=== PATIENT | female | born 1940 | race Caucasian/White ===

== ENCOUNTER 2017-01-24 07:03 | Day surgery (SDC) | payer MEDICARE ==
[~2017-01-24 07:03] MED LIST: Acetaminophen TAB* 325 MG PO PRN; Buffered Lidocaine 1% SYR 3ML* 3 ML/SYR SYRINGE INTRADERM ONE
[2017-01-24] MEDS ORDERED: Midazolam* 1 MG/ML 2 ML VIAL (2 MG) ONE (08:49)
[2017-01-24] MEDS ORDERED: Lidocaine 2% EPI 1:200000 MPF* 20 ML VIAL ONE (09:21)
[2017-01-24] MEDS ORDERED: Cyclopentolate 1% OPTH.SOL* 2 ML BTL ONE (09:21)
[2017-01-24] MEDS ORDERED: Phenylephrine 2.5% OPTH.SOL* 2 ML BTL ONE (09:21)
[2017-01-24] MEDS ORDERED: Lidocaine 1% MPF* 2 ML VIAL ONE (09:21)
[2017-01-24] MEDS ORDERED: Povidone Iodine 5% OPTH* 30 ML BTL ONE (09:21)
[2017-01-24] MEDS ORDERED: Proparacaine 0.5% OPHTH.SOL* 15 ML BTL ONE (09:21)
[2017-01-24] MEDS ORDERED: Neomycin/Polymy/Dex OPTH.SUSP* MAXITROL 0.1% 5 ML ONE (09:21)
[2017-01-24] MEDS ORDERED: Flurbiprofen 0.03% OPTH.SOL* 2.5 ML BTL ONE (09:21)
[2017-01-24] MEDS ORDERED: acetaZOLAMIDE TAB* 250 MG ONE (09:21)
[2017-01-24 09:35] VITALS: BP 130/56
--- NOTE | 2017-01-25 02:15 | OP ---
DATE OF OPERATION: 01/24/17 - [facility] DATE OF : 42 SURGEON: Mario Bowman M.D. PREOPERATIVE DIAGNOSIS: Cataract, left eye. POSTOPERATIVE DIAGNOSIS: Cataract, left eye. OPERATIVE PROCEDURE: Phacoemulsification, left eye, with IOL. DESCRIPTION OF PROCEDURE: The patient was brought to the operating room after being given 1/2% Alcaine with epinephrine drops in the preoperative area. The eye was prepped and draped in the usual sterile fashion. Sterile drape and eyelid speculum were placed. Again, topical 1/2% Alcaine with epinephrine was given. A paracentesis incision was made at the 3 o'clock position with the No.75 blade. Clear cornea incision 2.2 x 2.2-mm was created at the 6 o'clock position starting at the anterior limbus using the 2.2-mm keratome. The anterior chamber was irrigated with 0.4 mL of 1% non-preservative intracameral lidocaine and filled with DisCoVisc. A capsulorrhexis was completed using the cystotome and the Utrata forceps. Hydrodissection was performed with balanced salt solution. The lens nucleus was removed with the Phacoemulsification handpiece without incident. Cortex was removed with the irrigation-aspiration handpiece. The capsular bag was re-inflated using DisCoVisc and an [id number] 17.5 implant was inserted with the shooter. The irrigation-aspiration handpiece was used to remove all residual DisCoVisc. The eye was refilled with balanced salt solution and the wound checked and found to be watertight. Topical Maxitrol drops were given. [id number]/[facility] #: [id number] MTDD
== END 2017-01-24 09:49 | disposition home or self-care (01) ==
LOC: OREAST 07:03
PROVIDERS: ATTEND Specialist
DX: H25.812 Combined forms of age-related cataract, left eye (principal); H43.813 Vitreous degeneration, bilateral; H16.223 Keratoconjunctivitis sicca, not specified as Sjogren's, bilateral; Z85.3 Personal history of malignant neoplasm of breast
CPT/HCPCS: A9270-GY; J2250; V2632

== ENCOUNTER 2017-01-31 08:05 | Day surgery (SDC) | payer MEDICARE ==
[~2017-01-31 08:05] MED LIST changes: +Cyclopentolate 1% OPTH.SOL* 2 ML BTL ONE; +Flurbiprofen 0.03% OPTH.SOL* 2.5 ML BTL ONE; +Lidocaine 1% MPF* 2 ML VIAL ONE; +Lidocaine 2% EPI 1:200000 MPF* 20 ML VIAL ONE; +Neomycin/Polymy/Dex OPTH.SUSP* MAXITROL 0.1% 5 ML ONE; +Phenylephrine 2.5% OPTH.SOL* 2 ML BTL ONE; +Povidone Iodine 5% OPTH* 30 ML BTL ONE; +Proparacaine 0.5% OPHTH.SOL* 15 ML BTL ONE; +acetaZOLAMIDE TAB* 250 MG ONE
[2017-01-31] MEDS ORDERED: Midazolam* 1 MG/ML 2 ML VIAL (2 MG) ONE (10:19)
[2017-01-31 11:12] VITALS: BP 142/75
--- NOTE | 2017-01-31 12:41 | OP ---
DATE OF OPERATION: 01/31/2017. DATE OF : 1940. SURGEON: Mario Bowman M.D. PREOPERATIVE DIAGNOSIS: Cataract right eye. POSTOPERATIVE DIAGNOSIS: Cataract right eye. OPERATIVE PROCEDURE: Phacoemulsification right eye with IOL. PROCEDURE: The patient was brought to the operating room after being given 1/2% Alcaine with epinep hrine drops in the preoperative area. The eye was prepped and draped in the usual sterile fashion. Sterile drape and eyelid speculum were placed. Again, topical 1/2% Alcaine with epinephrine was gi wilbert. A paracentesis incision was made at the 9 o'clock position with the No.75 blade. Clear cornea incision 2.2 x 2.2-mm was created at the 12 o'clock position starting at the anterior limbus using the 2.2-mm keratome. The anterior chamber was irrigated with 0.4 mL of 1% non-preservative intracam eral lidocaine and filled with DisCoVisc. A capsulorrhexis was completed using the cystotome and nando e Utrata forceps. Hydrodissection was performed with balanced salt solution. The lens nucleus was r emoved with the Phacoemulsification handpiece without incident. Cortex was removed with the irrigat ion-aspiration handpiece. The capsular bag was re-inflated using DisCoVisc and an [id number] 17 implant was inserted with the shooter. The irrigation-aspiration handpiece was used to remove all residual DisCoVisc. The eye was refilled with balanced salt solution and the wound checked and found to be watertight. Topical Maxitrol drops were given. [id number]/[facility] #: [id number]
== END 2017-01-31 11:26 | disposition home or self-care (01) ==
LOC: OREAST 08:05
PROVIDERS: ATTEND Specialist
DX: H25.811 Combined forms of age-related cataract, right eye (principal); Z85.3 Personal history of malignant neoplasm of breast
CPT/HCPCS: A9270-GY; J2250; V2632

== ENCOUNTER 2017-06-16 12:01 | Emergency (ER) | payer MEDICARE ==
[2017-06-16 12:18] VITALS: BP 140/74
--- NOTE | 2017-06-16 13:49 | RAD ---
INDICATION: Left scapular injury. TECHNIQUE: 3 views of the left scapula were obtained. FINDINGS: The clavicle, scapula and proximal humerus appear intact. There are slightly displaced fractures of the left posterior third fourth and fifth ribs. The results of this exam were called to the referring clinician. IMPRESSION: SLIGHTLY DISPLACED FRACTURES OF THE LEFT THIRD, FOURTH AND FIFTH POSTERIOR RIBS.
--- NOTE | 2017-06-16 13:55 | UC ---
Florina Quan Edward, scribed for Bridget Muse MD on 06/16/17 at 1221 . Upper Extremity HPI - HPI Summary HPI Summary: 76 y/o female presents to [facility] c/o L shoulder pain s/p fall on 06/11/17. Patient lost her balance and fell backwards over and into the bathtub - the patient's L shoulder hit the ledge over the bathtub. The pain came upon immediately following the fall but improved throughout the week. Today at 10:00, however, the patient was performing PT exercises involving the shoulders and arms that aggravated the pain severely - the pain was rated 7/10 at triage. The pain radiates to the side, the back and to the front - she feels like her muscles are spasming. There is also decreased ROM in L arm due to pain in shoulder. The pain is not aggravated by deep breaths. Associated sx: ecchymosis over L shoulder. Denies neck pain, BURTON. The patient has been using Tramadol and Dilaudid for chronic arthritis. PMHx chronic arthritis, nerve pain (resolved), back spasms and breast CA. No PMHx DM, HTN. FHx mother - cancer, aneurysms. Dexascan 01/2017 shows osteopenia, T score in the -1.5 area. - History of Current Complaint Stated Complaint: L. SHOULDER PAIN Hx Obtained From: Patient Onset/Duration: Sudden Onset, Lasting Days, Still Present Pain Intensity: 7 Pain Scale Used: 0-10 Numeric Location Of Pain: Is Discrete @ - L shoulder Associated Signs And Symptoms: Positive: Bruising - L shoulder - Allergies/Home Medications Allergies/Adverse Reactions: Allergies Allergy/AdvReac Type Severity Reaction Status Date / Time No Known Allergies Allergy Verified 06/16/17 12:10 PMH/Surg Hx/FS Hx/Imm Hx - Additional Past Medical History Additional PMH: Positive: arthritis, osteopenia Previously Healthy: No Cancer History: Breast Cancer Other History Of: Negative For: Anticoagulant Therapy - Surgical History Surgical History: Yes Surgery Procedure, Year, and Place: lumpectomy. knee replacement. carpal tunnel surgery. eye surgery - Family History Known Family History: Positive: Other - Parotid CA. Aneurysms - Social History Occupation: Retired Lives: With Family Alcohol Use: Occasionally Alcohol Amount: socially Substance Use Type: None Smoking Status (MU): Former Smoker Type: Cigarettes Amount Used/How Often: 1PPD 25 YRS Length of Time of Smoking/Using Tobacco: 25 YRS Have You Smoked in the Last Year: No When Did the Patient Quit Smoking/Using Tobacco: 1980s Review of Systems Constitutional: Negative Skin: Bruising - Over L shoulder Eyes: Negative ENT: Negative Respiratory: Negative Cardiovascular: Other - no history of hypertension. Gastrointestinal: Negative Genitourinary: Negative Motor: Negative Neurovascular: Negative Musculoskeletal: Arthralgia - L shoulder pain radiating to the back, down the side and to the front, Decreased ROM - L arm due to pain, Other: - no neck pain Neurological: Negative - No BURTON Psychological: Negative All Other Systems Reviewed And Are Negative: Yes Physical Exam Triage Information Reviewed: Yes Appearance: Ill-Appearing - looks chronically unwell, Pain Distress - moderate, looks fatigued. Vital Signs: Initial Vital Signs Temp 97.7 F 06/16/17 12:12 Pulse 75 06/16/17 12:12 Resp 16 06/16/17 12:12 BP 140/74 06/16/17 12:12 Pulse Ox 97 06/16/17 12:12 Vital Signs Reviewed: Yes Eye Exam: Normal ENT: Positive: Pharynx normal Respiratory Exam: Other - kyphotic chest wall withhout Respiratory: Positive: Lungs clear - good air entry to both bases., Normal breath sounds Cardiovascular: Positive: RRR, No Murmur Abdomen Description: Positive: Nontender, Soft Musculoskeletal: Positive: ROM Limited @ - left shoulder. Pain with abduction., Other: - tenderness left scapula with 7 cm ecchymosis over the scapula. No tenderness thoracic vertebra. No clavicular tenderness. Tender along lateral rib cage Neurological: Positive: Alert, Muscle Tone Normal Psychological Exam: Normal Skin Exam: Normal Diagnostics - Laboratory Diagnostic Studies Completed/Ordered: xrays show fractures of ribs 3,4,5 - Radiology Scapula XRAY Xray Interpretation: No Acute Changes - Negative, pending radiology interpretation Radiology Interpretation Completed By: ED Physician Ribs XRAY Xray Interpretation: No Acute Changes - Negative pending radiology interpretation Radiology Interpretation Completed By: ED Physician Upper Extremity Course/Dx - Course Course Of Treatment: reguar use of nabumetone and tramadol - Differential Dx/Diagnosis Provider Diagnoses: left rib fractures 3, 4. 5 Discharge - Discharge Plan Condition: Stable Disposition: HOME Patient Education Materials: Rib Fracture (ED) Additional Instructions: For pain control of rib fractures, I suggest using nabumetone twice daily on a regular basis. Continue use of prevacid, and stop this if you begin having upset stomach. Use tramadol every 6 hours as needed for pain. As discussed, you have an adequate supply. Should you develop shortness of breath, please follow up. I suggest a follow up with Dr. Ferrera within the next week. The documentation as recorded by the Florina grant Edward accurately reflects the service I personally performed and the decisions made by me, Bridget Muse MD.
--- NOTE | 2017-06-16 14:04 | RAD ---
INDICATION: Left rib injury. TECHNIQUE: 4 views of the left ribs and dual-energy PA views of the chest were obtained. FINDINGS: There are slightly displaced fractures of the left posterior third, fourth and fifth ribs. The heart is within normal limits in size. The lungs are clear. There is no evidence for pneumothorax or pleural effusion. IMPRESSION: SLIGHTLY DISPLACED FRACTURES OF THE LEFT THIRD THROUGH FIFTH RIBS, NO EVIDENCE FOR PNEUMOTHORAX.
== END 2017-06-16 14:16 | disposition home or self-care (01) ==
LOC: UCEAST 12:01
DX: Z87.891 Personal history of nicotine dependence (principal); S22.42XA Multiple fractures of ribs, left side, initial encounter for closed fracture; W01.0XXA Fall on same level from slipping, tripping and stumbling without subsequent striking against object, initial encounter; Y93.9 Activity, unspecified; Y92.002 Bathroom of unspecified non-institutional (private) residence as the place of occurrence of the external cause; Y99.9 Unspecified external cause status
CPT/HCPCS: 99212; G0463

== ENCOUNTER 2022-06-08 11:56 | Observation (INO) ==
[2022-06-08 12:50] LABS: ABS Basophils 0.1 10^3/ul (0-0.2); ABS Eosinophils 0.4 10^3/ul (0-0.6); ABS Lymphocytes 1.9 10^3/ul (1.0-4.8); ABS Monocytes 0.4 10^3/ul (0-0.8); ABS Neutrophils 4.3 10^3/ul (1.5-7.7); Eosinophil % 5.5 %; Hematocrit 37 % (35-47); Hemoglobin 12.5 g/dL (12.0-16.0); Lymphocyte % 26.9 %; Mean Corpuscular HGB Conc 34 g/dL (31-36); Mean Corpuscular Hemoglobin 31 pg (27-31); Mean Corpuscular Volume 93 fL (80-97); Mean Platelet Volume 9.9 fL (7.4-10.4); Nucleated Red Blood Cells % 0.1; Platelet Count 161 10^3/uL (150-450); Red Blood Count 4.02 10^6 /uL (3.70-4.87); Red Cell Distribution Width 13 % (10-15)
[2022-06-08 13:02] LABS: Activated Partial Thrombo Time 34.8 seconds (26.0-38.0); INR 1.24 (0.86-1.15)
[2022-06-08 13:23] LABS: ALT 10 U/L (7-52); AST 12 U/L (13-39); Albumin 3.6 g/dL (3.2-5.2); Albumin/Globulin Ratio 1.3 (1-3); Alcohol, S < 13 mg/dL (<13); Alkaline Phosphatase 78 U/L (35-149); Anion Gap 7 mmol/L (2-11); Blood Urea Nitrogen 22 mg/dL (6-24); CO2 Carbon Dioxide 31 mmol/L (22-32); Calcium 9.2 mg/dL (8.6-10.3); Chloride 103 mmol/L (101-111); Cholesterol 179 mg/dL; Globulin 2.8 g/dL (2-4); Glucose 91 mg/dL (70-100); HDL Cholesterol 40.4 mg/dL; LDL Cholesterol 120 mg/dL; Potassium 4.3 mmol/L (3.5-5.0); Sodium 141 mmol/L (135-145); Total Protein 6.4 g/dL (6.4-8.9); Triglycerides 95 mg/dL; eGFR CKD-EPI 53.1 (>60)
[2022-06-08 13:38] LABS: TSH Ultra Thyroid Stim Horm 1.74 mcIU/mL (0.34-5.60)
[2022-06-08] MEDS ORDERED: Ondansetron 4 mg VIAL 2 MG/ML 2 ml VIAL IV PRN (15:21)
[2022-06-08] MEDS ORDERED: NYSTATIN TOPICAL PRN (15:23)
[2022-06-08] MEDS ORDERED: TRIAMCINOLONE TOPICAL PRN (15:23)
[2022-06-08] MEDS ORDERED: Lidocaine PATCH 5% PATCH TRANSDERM PRN (16:45)
[2022-06-08] MEDS: Enoxaparin 40 MG/0.4 ML SYR SUBCUT SCH (19:35)
[2022-06-09 05:54] LABS: ABS Basophils 0.1 10^3/ul (0-0.2); ABS Eosinophils 0.3 10^3/ul (0-0.6); ABS Lymphocytes 1.6 10^3/ul (1.0-4.8); ABS Monocytes 0.3 10^3/ul (0-0.8); ABS Neutrophils 3.6 10^3/ul (1.5-7.7); Hematocrit 37 % (35-47); Hemoglobin 12.9 g/dL (12.0-16.0); Mean Corpuscular HGB Conc 34 g/dL (31-36); Mean Corpuscular Hemoglobin 32 pg (27-31); Mean Corpuscular Volume 92 fL (80-97); Mean Platelet Volume 9.8 fL (7.4-10.4); Nucleated Red Blood Cells % 0.1; Platelet Count 168 10^3/uL (150-450); Red Blood Count 4.06 10^6 /uL (3.70-4.87); Red Cell Distribution Width 13 % (10-15); White Blood Count 5.9 10^3/uL (3.5-10.8)
[2022-06-09 06:44] LABS: Calcium 9.2 mg/dL (8.6-10.3); Potassium 4.3 mmol/L (3.5-5.0); eGFR CKD-EPI 70.2 (>60)
[2022-06-09] MEDS: Venlafaxine XR 75 mg PO SCH (10:05)
[2022-06-09 14:42] LABS: Folate 19.71 ng/mL (5.90-24.80)
[2022-06-09] MEDS: Enoxaparin 40 MG/0.4 ML SYR SUBCUT SCH (16:36)
[2022-06-09] MEDS: Cyanocobalamin INJ 1,000 MCG/ML VIAL 1 ML VIAL IM SCH (16:37)
[2022-06-10] MEDS: Cyanocobalamin INJ 1,000 MCG/ML VIAL 1 ML VIAL IM SCH (08:42)
[2022-06-10] MEDS: Venlafaxine XR 75 mg PO SCH (08:42)
[2022-06-10] MEDS: Enoxaparin 40 MG/0.4 ML SYR SUBCUT SCH (15:59)
[2022-06-11] MEDS: Cyanocobalamin INJ 1,000 MCG/ML VIAL 1 ML VIAL IM SCH (08:12)
[2022-06-11] MEDS: Venlafaxine XR 75 mg PO SCH (08:12)
[2022-06-11] MEDS: Enoxaparin 40 MG/0.4 ML SYR SUBCUT SCH (15:36)
[2022-06-12] MEDS: Venlafaxine XR 75 mg PO SCH (09:18)
[2022-06-12] MEDS: Cyanocobalamin INJ 1,000 MCG/ML VIAL 1 ML VIAL IM SCH (09:18)
[2022-06-12 13:03] VITALS: BP 99/65
[2022-06-13 00:33] LABS: Albumin 3.2 g/dL (3.4-4.7); Albumin/Globulin Ratio 0.98; Total Protein(PEP) 6.5 g/dL (6.3 - 7.9)
[2022-06-14 06:17] LABS: Flag, M-protein Isotype Positive (Negative)
== END 2022-06-12 15:10 | disposition home or self-care (01) ==
LOC: ED 11:56 → EDHOLD 11:56 → MEDTELE 17:40
PROVIDERS: ADMIT Internal Medicine; ATTEND Internal Medicine

== ENCOUNTER 2023-07-11 14:14 | Observation (INO) ==
[2023-07-11] MEDS ORDERED: Magnesium Hydroxide LIQ 30 ML UDC PO PRN (14:19)
[2023-07-11] MEDS ORDERED: Morphine 2 MG/ML SYRINGE IV PRN (14:19)
[2023-07-11] MEDS ORDERED: Ondansetron ODT 4 mg TAB 4 MG TAB PO PRN (14:19)
[2023-07-11] MEDS ORDERED: Ondansetron 4 mg VIAL 2 MG/ML 2 ml VIAL IV PRN (14:19)
[2023-07-11] MEDS ORDERED: Lactulose 30 ml UDC PO PRN (14:19)
[2023-07-11] MEDS ORDERED: Lidocaine PATCH 5% PATCH TRANSDERM PRN (16:56)
[2023-07-11] MEDS ORDERED: Heparin 5000 UNITS/ML 1 mL VIAL SUBCUT SCH ×2 (17:00→20:00)
[2023-07-11] MEDS ORDERED: Buprenorphine 5 MCG PATCH(NF) 5 MCG/HR PATCH (5 MG TOTAL) TRANSDERM SCH (17:00)
[2023-07-11] MEDS ORDERED: Polyethylene Glycol 3350 17 GM PACKET PO PRN (17:06)
[2023-07-11] MEDS ORDERED: Nystatin/Triamcinolone CR (NF) 1 APPLIC TUBE TOPICAL PRN (17:06)
[2023-07-11] MEDS ORDERED: Triamcinolone 0.025% OINT 15 GM TUBE TOPICAL PRN (17:24)
[2023-07-11 17:46] LABS: ABS Basophils 0.1 10^3/uL (0.0-0.1); ABS Eosinophils 0.4 10^3/uL (0.0-0.5); ABS Lymphocytes 2.2 10^3/uL (1.0-4.8); ABS Monocytes 0.4 10^3/uL (0.0-0.9); ABS Neutrophils 4.1 10^3/uL (1.5-7.6); ABS Nucleated RBC 0.01 10^3/ul; Eosinophil % 5.2 %; Hematocrit 35.5 % (35-45); Lymphocyte % 30.9 %; Mean Corpuscular Hgb Conc 33.8 g/dL (31-36); Mean Corpuscular Volume 94.6 fL (80-97); Nucleated Red Blood Cells % 0.1 /100 WBC (0.0-0.4); Platelet Count 245 10^3/uL (150-450); Red Blood Count 3.75 10^6/uL (3.63-4.92); Red Cell Distribution Width 14.1 % (12-17); White Blood Count 7.2 10^3/uL (3.8-11.8)
[2023-07-11 17:52] LABS: INR 1.21 (0.83-1.13)
[2023-07-11 18:02] LABS: Calcium 8.8 mg/dL (8.6-10.3); Creatinine, Serum 1.34 mg/dL (0.51-0.95); Potassium 4.5 mmol/L (3.5-5.0); eGFR CKD-EPI 39.8 (>60)
[2023-07-11] MEDS: Magnesium Hydroxide LIQ 30 ML UDC PO SCH (20:05)
[2023-07-11] MEDS ORDERED: ORPHENADRINE CITRATE 100 MG PO SCH (21:00)
[2023-07-12] MEDS: Venlafaxine XR 75 mg PO SCH (08:02)
[2023-07-12] MEDS: Vitamin THERAPEUTIC TAB PO SCH (08:02)
[2023-07-12] MEDS: Magnesium Hydroxide LIQ 30 ML UDC PO SCH ×2 (08:02→20:38)
[2023-07-12] MEDS ORDERED: ceFAZolin 2 GM in NS PREMIX 2 GM/100 ML BAG IVPB ONE (09:15)
[2023-07-12] MEDS ORDERED: fentaNYL 100 mcg/2 ml 50 MCG/ML VIAL IV PRN (10:45)
[2023-07-12] MEDS ORDERED: Naloxone 0.4 mg VIAL 0.4 mg/ml 1 ml VIAL IV PRN (10:45)
[2023-07-12] MEDS ORDERED: Ondansetron 4 mg VIAL 2 MG/ML 2 ml VIAL IV PRN (10:45)
[2023-07-12] MEDS ORDERED: HYDROmorphone 1 MG/1 ML SYRINGE IV PRN (10:45)
[2023-07-12] MEDS: ceFAZolin 1 GM in Dextrose 1 GM/50 ML BAG IVPB SCH (20:35)
[2023-07-13] MEDS: ceFAZolin 1 GM in Dextrose 1 GM/50 ML BAG IVPB SCH ×2 (04:01→11:59)
[2023-07-13] MEDS: Vitamin THERAPEUTIC TAB PO SCH (09:58)
[2023-07-13] MEDS: Venlafaxine XR 75 mg PO SCH (09:58)
[2023-07-13] MEDS: Magnesium Hydroxide LIQ 30 ML UDC PO SCH (09:59)
[2023-07-13 10:47] VITALS: BP 127/72
== END 2023-07-13 15:08 ==
LOC: SSU 16:07 → INTOOBSV 16:07 → SSU 07-12 13:10
PROVIDERS: ADMIT Orthopaedic Surgery Hand Surgery; ATTEND Orthopaedic Surgery Hand Surgery

== ENCOUNTER 2024-03-31 10:49 | Inpatient (IN) ==
[2024-03-31 11:00] LABS: ABS Eosinophils 0.4 10^3/uL (0.0-0.5); ABS Lymphocytes 1.5 10^3/uL (1.0-4.8); ABS Monocytes 0.3 10^3/uL (0.0-0.9); ABS Neutrophils 2.9 10^3/uL (1.5-7.6); Eosinophil % 6.8 %; Hematocrit 29.7 % (35-45); Hemoglobin 9.9 g/dL (11.5-14.3); Lymphocyte % 28.9 %; Mean Corpuscular Hemoglobin 31.8 pg (27-33); Mean Corpuscular Hgb Conc 33.5 g/dL (31-36); Mean Corpuscular Volume 95.1 fL (80-97); Mean Platelet Volume 8.3 fL (7.5-11.2); Nucleated Red Blood Cells % 0.1 %/100WBC (0.0-0.8); Platelet Count 163 10^3/uL (150-450); Red Blood Count 3.12 10^6/uL (3.63-4.92); Red Cell Distribution Width 13.3 % (12-17); White Blood Count 5.2 10^3/uL (3.8-11.8)
[2024-03-31 11:10] LABS: INR 1.47 (0.83-1.13)
[2024-03-31 11:20] LABS: Albumin 2.7 g/dL (3.2-5.2); Albumin/Globulin Ratio 1.1 (1-3); Calcium 6.7 mg/dL (8.6-10.3); Creatinine, Serum 0.68 mg/dL (0.51-0.95); Globulin 2.5 g/dL (2-4); Potassium 3.5 mmol/L (3.5-5.0); Total Bilirubin 0.3 mg/dL (0.2-1.0); Total Protein 5.2 g/dL (6.4-8.9); eGFR CKD-EPI 86.9 (>60)
[2024-03-31 11:47] LABS: C Reactive Protein 3.9 mg/L (<8.01); Magnesium 1.6 mg/dL (1.9-2.7); Phosphorus 3.1 mg/dL (2.5-5.0)
[2024-03-31] MEDS: CALCIUM GLUCONATE 1GM/50ML NS 1 GM/50 ML BAG IV ONE (11:57)
[2024-03-31] MEDS: Lactated Ringers 1000 ml BAG 1,000 ML IV ONE (11:57)
[2024-03-31 12:16] LABS: High Sensitivity Troponin 1 Hr 8 pg/mL (<15)
[2024-03-31 12:57] LABS: PCO2 Arterial 63 mmHg (35-45); PO2 Arterial 94 mmHg (80-100)
[2024-03-31 12:58] LABS: High Sensitivity Troponin 1 Hr 4 pg/mL (<15)
[2024-03-31] MEDS: Magnesium Sulfate 2 gm BAG 2 GM/50 ML BAG IVPB ONE (14:50)
[2024-03-31] MEDS: Potassium Chlor 20 meq TAB.ER PO ONE (14:51)
[2024-03-31 16:27] LABS: Resp Rate 20
[2024-03-31] MEDS: Magnesium Sulfate IV 1GM/100ML 1 GM/100 ML BAG IV ONE ×2 (16:27→17:27)
[2024-03-31 16:29] LABS: PCO2 Arterial 53 mmHg (35-45); PO2 Arterial 160 mmHg (80-100)
[2024-03-31] MEDS: KCL 20 MEQ/100 ML IVPREMIX 20 MEQ/100 ML BAG IV SCH (16:58)
[2024-03-31] MEDS ORDERED: Buprenorphine 5 MCG PATCH(NF) 5 MCG/HR PATCH (5 MG TOTAL) TRANSDERM SCH (17:00)
[2024-03-31] MEDS: Enoxaparin 40 MG/0.4 ML SYR SUBCUT SCH (20:36)
[2024-03-31 21:00] LABS: Calcium 9.1 mg/dL (8.6-10.3); Creatinine, Serum 0.91 mg/dL (0.51-0.95); Magnesium 2.9 mg/dL (1.9-2.7); Potassium 5.1 mmol/L (3.5-5.0)
[2024-04-01 07:19] LABS: Calcium 8.8 mg/dL (8.6-10.3); Creatinine, Serum 0.91 mg/dL (0.51-0.95); Magnesium 2.6 mg/dL (1.9-2.7); Potassium 4.9 mmol/L (3.5-5.0)
[2024-04-01] MEDS: Venlafaxine XR 75 mg PO SCH (08:58)
[2024-04-01] MEDS: Iodixanol (CONTRAST) 320 MG/ML 100 ML SDV IV ONE (09:06)
[2024-04-02 09:32] VITALS: BP 126/95
== END 2024-04-02 14:30 | DRG 70 ==
LOC: ED 10:49 → EDHOLD 10:49 → SUATTDRO 14:40 → EDHOLD 14:40 → MEDTELE 17:12
PROVIDERS: ADMIT Hospitalist; ATTEND Internal Medicine